=== PATIENT | male | born 1980 | race Caucasian/White ===

== ENCOUNTER 2023-08-14 16:40 | Emergency (ER) | payer OTHER, SELFPAY ==
[2023-08-14] VITALS (8 sets, daily range): BP systolic 133–173; BP diastolic 90–116; PULSE 81–102; RESP 12–101; TEMP 36.6; O2SAT 94–98; BMI 29.8
--- NOTE | 2023-08-14 16:51 | ED.RN ---
PT. HAS AN EXISTING WORKMAN'S COMP CLAIM FOR INJURY
--- NOTE | 2023-08-14 18:00 | RAD_ITS ---
INDICATION: trauma EXAMINATION/TECHNIQUE: X-RAY - RIGHT XR Ankle Min 3 Views 3 VIEWS COMPARISON: FINDINGS: Medial malleolus fracture and distal fibular shaft fracture. There is distortion of the talotibial articulation with laterally shifted talus. Overlying cast obscures bony details. RAD/Ankle min 3 Views IMPRESSION: Medial malleolus and distal fibular fractures. Overlying cast obscures bony details. Electronically Signed: Noble Lawson DO at 18:53 EST Reading Location ID and State: [facility] / [place] Tel [phone], Service support ,
--- NOTE | 2023-08-14 18:14 | ED.VIS.LOWEX ---
HPI History of Present Illness Chief Complaint: Lower Extremity Injury Informant: patient and spouse/S.O. 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 He slipped fell and ended up getting a closed bimalleolar fracture of his right ankle. He was seen at [facility] x-rayed and splinted and told to follow-up for likely surgery. He saw orthopedics today. An x-ray was done. He was sent here for further reduction and/or application of a more cushioned splint. Evidently surgery is being done either later this week or early next week. Patient does state that he has a lot of pain in his mid leg and ankle. He states he cannot feel his toes. PFSH PFSH Home Medications oxycodone-acetaminophen 5 mg-325 mg tablet 1 tab PO Q6H PRN PRN pain 5 days #20 TABLETS 08/15/23 [Rx Last Taken Unknown] Allergy/AdvReac Type Severity Reaction Status Date / Time Penicillins Allergy Intermediate SWELLING Verified 08/14/23 16:43 Social History Smoking Status: Never smoker ROS ROS ED Constitutional Constitutional ED: Denies chills or fever(s) Cardiovascular Cardiovascular: Denies chest pain or palpitations Respiratory/Chest Respiratory/Chest: Denies cough or dyspnea Gastrointestinal Gastrointestinal: Denies abdominal pain, nausea or vomiting Genitourinary Genitourinary ED: Denies hematuria Musculoskeletal Musculoskeletal: Reports arthralgias; Denies back pain, myalgias or neck pain Integumentary Denies rash Neurologic Neurologic: Denies paresthesias or weakness Hematologic/Lymphatic Hematologic/Lymphatic: Denies easy bleeding or easy bruising Allergic/Immunologic Allergic/Immunologic ED: Denies urticaria EXAM Physical Exam Narrative Exam Narrative: General: Patient awake alert no acute distress sitting comfortably in bed. HEENT: No sign of trauma Cardiorespiratory shows easy unlabored breathing. Heart is regular. Peripheral pulses are normal. There is no murmur. His lungs are clear bilaterally. Saturations are normal at 97% on room air showing no hypoxia. Abdomen soft nontender No spinal tenderness Extremities show a splint on his right lower extremity. Sensation is intact distally. Pending x-rays this was not removed. My report is that this is closed and did not break through the skin. Const Vital Signs: 08/14/23 16:41 08/14/23 19:51 08/14/23 20:29 Temperature 98 F Temperature Source Temporal Pulse Rate 88 81 86 Pulse Rate [1 (Initial Baseline)] Pulse Rate [2] Pulse Rate [3] Respiratory Rate 16 12 16 Respiratory Rate [1 (Initial Baseline)] Respiratory Rate [2] Respiratory Rate [3] Blood Pressure 152/113 H 153/110 H Blood Pressure [1 (Initial Baseline)] Blood Pressure [2] Blood Pressure [3] Blood Pressure Mean 126 Pulse Ox 97 97 94 Oxygen Delivery Method Room Air Room Air Room Air Oxygen Delivery Method [1 (Initial Baseline)] Oxygen Delivery Method [2] Oxygen Delivery Method [3] Oxygen Flow Rate (L/min) Oxygen Flow Rate (L/min) [1 (Initial Baseline)] Oxygen Flow Rate (L/min) [2] Oxygen Flow Rate (L/min) [3] 08/14/23 23:28 08/14/23 23:38 08/14/23 23:39 Temperature 97.8 F Temperature Source Pulse Rate 90 93 Pulse Rate [1 (Initial Baseline)] 84 Pulse Rate [2] 102 H Pulse Rate [3] 96 Respiratory Rate 16 27 H Respiratory Rate [1 (Initial Baseline)] 35 H Respiratory Rate [2] 24 H Respiratory Rate [3] 101 H Blood Pressure 149/116 H Blood Pressure [1 (Initial Baseline)] 173/90 H Blood Pressure [2] 162/110 H Blood Pressure [3] 133/90 H Blood Pressure Mean Pulse Ox 94 98 Oxygen Delivery Method Room Air Nasal Cannula Oxygen Delivery Method [1 (Initial Baseline)] Room Air Oxygen Delivery Method [2] Nasal Cannula Oxygen Delivery Method [3] Room Air Oxygen Flow Rate (L/min) 2 Oxygen Flow Rate (L/min) [1 (Initial Baseline)] 2 Oxygen Flow Rate (L/min) [2] 2 Oxygen Flow Rate (L/min) [3] 2 08/14/23 23:52 08/14/23 23:55 Temperature Temperature Source Pulse Rate 94 Pulse Rate [1 (Initial Baseline)] Pulse Rate [2] Pulse Rate [3] Respiratory Rate 28 H Respiratory Rate [1 (Initial Baseline)] Respiratory Rate [2] Respiratory Rate [3] Blood Pressure 142/96 H Blood Pressure [1 (Initial Baseline)] Blood Pressure [2] Blood Pressure [3] Blood Pressure Mean Pulse Ox 95 Oxygen Delivery Method Room Air Room Air Oxygen Delivery Method [1 (Initial Baseline)] Oxygen Delivery Method [2] Oxygen Delivery Method [3] Oxygen Flow Rate (L/min) Oxygen Flow Rate (L/min) [1 (Initial Baseline)] Oxygen Flow Rate (L/min) [2] Oxygen Flow Rate (L/min) [3] MDM MDM MDM Narrative Medical decision making narrative: My independent interpretation of his three-view x-ray of the left ankle shows bimalleolar fracture. There also appears to be a fracture line extending a little bit up the tibia. The fibula appears to have good communication with the talus but the tibia seems slid over giving the suspicion of intraosseous ligament disruption. But there is no proximal leg tenderness. We talked the patient about options. I explained that no matter how good a reduction we can get with this, he still needs to go to surgery. He really did not want to move this more. I told him I do not know if I can get significantly improved reduction. And if we are going to put a well-padded cast on the increased padding will decrease my ability to hold a reduction. I think the best thing we can do is remove his cast that is too tight and place an appropriately padded splint. Due to difficulties in number of patients during the day it took a while to do this procedure. Procedure: Procedural sedation and splinting: Risk benefits were discussed. Mallampati 1. Has not eaten all day. No history of anesthesia complications. Patient was given a total of 80 mg of propofol. He got good sedation and was comfortable throughout the procedure. But he also stayed awake and was talking to us throughout the procedure. We were able to remove his splint. This took some cutting through a lot of the padding. It was rather tight. He has some bruising on the inside. He does have a slight fracture blister over the medial malleolus. But there is no break in the skin. I did not head big rolls of cotton padding. But we did place multiple web rolls very loosely around the ankle. We did this all the way up the foot and the leg also. We had a lot of extra at the ankle and heel. I then placed a 5 inch fiberglass posterior splint with a 4 inch fiberglass sugar-tong. These were loosely wrapped with Octaviano wrap. He tolerated this procedure well. He states he can now feel his toes and he can move his toes. He can feel the individual toe that I was touching when before he had trouble feeling anything. I explained that this will need surgery. They have follow-up and sounds like they are scheduled for surgery on Friday. I will write him for some more pain meds. I have explained that he should elevate this above the heart is much as possible. Radiography Diagnostic Testing: Clinical Impression(s) from Imaging Studies Ankle X-Ray 08/14/23 18:00 IMPRESSION: Medial malleolus and distal fibular fractures. Overlying cast obscures bony details. Electronically Signed: Noble Lawson DO at 18:53 EST Reading Location ID and State: [facility] / [place] Tel [phone], Service support , Discharge Plan Triage Chief Complaint: Lower Extremity Injury ED Provider: Mike Cohen Dx/Rx/DC Orders Clinical Impression: Tight cast, Bimalleolar fracture of right ankle Instructions: ED Ankle Fracture Prescriptions: New oxycodone-acetaminophen [oxycodone-acetaminophen] 5-325 mg tablet 1 tab PO Q6H PRN PRN (Reason: pain) 5 Days Qty: 20 0RF Primary Care Provider: Care Physician,No Primary Referrals: Carolina Walters DO [Non-Staff] - As soon as possible NOT,DEFINED [Non-Staff] - Disposition Disposition: Home, Self Care
[2023-08-14] MEDS: Acetaminophen 500 MG Tablet 1000 MG PO (21:56)
[2023-08-14] MEDS: fentaNYL 100 MCG/2 ML Ampul 25 MCG IV (23:25)
[2023-08-14] MEDS: Propofol 200 MG/20 ML Vial IV BOLUS (23:47)
[2023-08-15] VITALS: BP 154/85; PULSE 85; RESP 30; O2SAT 92; O2SAT 95
[2023-08-15 00:05] VITALS: BP 126/102; PULSE 84; RESP 30; O2SAT 96
[2023-08-15 00:58] VITALS: BP 126/102; PULSE 84; RESP 30; O2SAT 96
== END 2023-08-15 00:59 | disposition home or self-care (01) ==
PROVIDERS: Emergency Provider Emergency Medicine; Visit Provider Emergency Medicine
DX: S82.841D Displaced bimalleolar fracture of right lower leg, subsequent encounter for closed fracture with routine healing (principal); W01.0XXD Fall on same level from slipping, tripping and stumbling without subsequent striking against object, subsequent encounter; Y99.0 Civilian activity done for income or pay; Y92.89 Other specified places as the place of occurrence of the external cause
CPT/HCPCS: 29515; 29125; 29505; 73610; 96374; 99283; J7030; A4216